=== PATIENT | female | born 1965 | race Caucasian/White ===

== ENCOUNTER → 2016-10-26 | Outpatient (CLI) | payer OTHER ==
[2016-10-26 17:08] LABS: Basophils # (A) 0.1 k/uL (0-0.2); Basophils % (A) 1 %; CH 29.1; CHCM 33.5; Eosinophils # (A) 0.2 k/uL (0-0.7); Eosinophils % (A) 2 %; HCT 38.9 % (34.0-46.0); HDW 2.78; HGB 13.2 gm/dL (11.4-16.0); Luc # (Auto) 0.19; Luc % (Auto) 2; Lymphocytes # (A) 2.6 k/uL (1.0-4.8); Lymphocytes % (A) 30 %; MCH 29.6 pg (25.0-35.0); MCV 87.3 fL (80.0-100.0); Mean Platelet Volume 6.6; Monocytes # (A) 0.4 k/uL (0-1.0); Monocytes % (A) 5 %; Neutrophils # (A) 5.2 k/uL (1.3-7.7); Neutrophils % (A) 60 %; RBC 4.45 m/uL (3.80-5.40); RDW 12.9 % (11.5-15.5); WBC 8.6 k/uL (3.8-10.6); WBC (Perox) 8.67
[2016-10-26 17:26] LABS: ALT 35 U/L (9-52); AST 25 U/L (14-36); Alkaline Phosphatase 88 U/L (38-126); Anion Gap 12 mmol/L; Blood Urea Nitrogen 9 mg/dL (7-17); Calcium 9.6 mg/dL (8.4-10.2); Carbon Dioxide 25 mmol/L (22-30); Chloride 100 mmol/L (98-107); Glucose 98 mg/dL (74-99); Non-African American GFR(MDRD) >60 (>60 ml/min/1.73 sqM); Sodium 137 mmol/L (137-145); Total Bilirubin 0.7 mg/dL (0.2-1.3); Total Protein 7.4 g/dL (6.3-8.2)
== END | disposition home or self-care (01) ==
LOC: LABWHC1 16:35
PROVIDERS: ATTEND Internal Medicine Endocrinology, Diabetes & Metabolism
DX: E04.2 Nontoxic multinodular goiter (principal)
CPT/HCPCS: 36415; 80053; 82306; 82728; 84439; 84443; 84481; 85025; 86376

== ENCOUNTER → 2017-06-27 | Outpatient (CLI) | payer OTHER ==
--- NOTE | 2017-06-27 13:16 | USB ---
Reason for exam: clinical finding. History: Family history of breast cancer in maternal aunt at age 50. Took hormonal contraceptives beginning at age 20. Physical Findings: Nurse did not find any significant physical abnormalities on exam. US Breast BILAT Right breast ultrasound includes all four quadrants, the retroareolar region and axilla. Finding demonstrates no cystic or solid lesion seen. Left breast ultrasound includes all four quadrants, the retroareolar region and axilla. Finding demonstrates no cystic or solid lesion seen. These results were verbally communicated with the patient and result sheet given to the patient on 06/27/17. ASSESSMENT: Negative, BI-RAD 1 RECOMMENDATION: Routine screening mammogram of both breasts in 1 year. Manage patient on a clinical basis.
== END | disposition home or self-care (01) ==
LOC: RADUSWWP 12:15
PROVIDERS: ATTEND Internal Medicine
DX: N64.89 Other specified disorders of breast (principal)

== ENCOUNTER 2019-01-18 19:53 | Emergency (ER) | payer OTHER ==
--- NOTE | 2019-01-18 21:14 | ED ---
Headache HPI - General Chief Complaint: Headache Stated Complaint: Migraine Time Seen by Provider: 01/18/19 21:13 Mode of arrival: ambulatory Limitations: no limitations - History of Present Illness Initial Comments: Layla is a 53-year-old female who presents the emergency department today for evaluation of a headache. Patient reports she has a history of mild headaches that usually resolve with Tylenol or Motrin. She states that she's been having URI-like symptoms for about a week she seen her primary care physician and was told that it's a viral. Patient reports that throughout the day today she was working in her garden, she states that she is make to drink plenty of Gatorade and stay hydrated. She reports that evening she began experiencing a posterior headache that she thought was due to straining her neck muscles. She states that she tried to take some Tylenol but became nauseated and vomited. Patient reports his headache continued to worsen and was unlike previous headaches prompted her bring her to the ER. Patient states that her headache is associated with photophobia and phonophobia. at bedside states that he has seen his had headaches in the past but she's never been debilitated like this. He reports that she usually can handle headache and just needs to take a quick nap however she has been very uncomfortable she vomited she does not appear well. - Related Data Home Medications Medication Instructions Recorded Confirmed Atorvastatin [Lipitor] 40 mg PO HS 07/23/15 01/18/19 Cholecalciferol [Vitamin D3 (25 1,000 unit PO DAILY 01/18/19 01/18/19 Mcg = 1000 Iu)] Ferrous Sulfate [Feosol] 325 mg PO DAILY 01/18/19 01/18/19 Levothyroxine Sodium [Synthroid] 88 mcg PO DAILY 01/18/19 01/18/19 Mometasone Furoate [Asmanex Hfa] 1 puff INHALATION RT-BID 01/18/19 01/18/19 Ranitidine HCl [Zantac] 150 mg PO DAILY 01/18/19 01/18/19 Allergies Allergy/AdvReac Type Severity Reaction Status Date / Time Sulfa (Sulfonamide Allergy Vomiting, Verified 01/18/19 21:28 Antibiotics) diarrhea, rash hydrocodone bitartrate AdvReac Severe Vomiting Verified 01/18/19 21:28 [From Vicodin] acetaminophen [From Vicodin] AdvReac Intermediate Vomiting Verified 01/18/19 21:28 codeine phosphate AdvReac Unknown Nausea Verified 01/18/19 21:28 [From Tylenol-Codeine #3] Review of Systems ROS Statement: Those systems with pertinent positive or pertinent negative responses have been documented in the HPI. ROS Other: All systems not noted in ROS Statement are negative. 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 History of Any Multi-Drug Resistant Organisms: None Reported Past Surgical History: Appendectomy, Back Surgery, Tonsillectomy, Uterine Ablation Additional Past Surgical History / Comment(s): 10/08/15 lumbar laminectomy with discectomy L4-5. Other surgical hx: surgery to stretch urethra, cystoscopy, EGD Past Anesthesia/Blood Transfusion Reactions: Previous Problems w/ Anesthesia, Motion Sickness Additional Past Anesthesia/Blood Transfusion Reaction / Comment(s): " bleeding during tonsillectomy" Past Psychological History: No Psychological Hx Reported Smoking Status: Former smoker Past Alcohol Use History: Rare Past Drug Use History: None Reported - Past Family History Sister(s) Family Medical History: Cancer Additional Family Medical History / Comment(s): RECENTLY FROM COLON CANCER Father Family Medical History: Myocardial Infarction (PA) Additional Family Medical History / Comment(s): Father of a PA at age 41 yrs. Mother Additional Family Medical History / Comment(s): Mother has chronic back pain. General Exam - General Exam Comments Initial Comments: GENERAL: Patient is well-developed and well-nourished. Appears uncomfortable HENT: Normocephalic, Atraumatic. No significant lymphadenopathy is noted. Oropharynx is clear. Moist mucous membranes. EYES: The sclera were anicteric and conjunctiva were pink and moist. Extraocular movements were intact and pupils were equal round and reactive to light. PULMONARY: Unlabored respirations. Good breath sounds bilaterally. No audible rales rhonchi or wheezing was noted. CARDIOVASCULAR: There is a regular rate and rhythm without any murmurs gallops or rubs. ABDOMEN: Soft and nontender with normal bowel sounds. SKIN: Skin is clear with no lesions or rashes and otherwise unremarkable. NEUROLOGIC: Patient is alert and oriented x3. Cranial nerves II through XII are grossly intact. Motor and sensory are also intact. Normal speech, volume and content. Symmetrical smile. MUSCULOSKELETAL: Normal extremities with adequate strength and full range of motion. No lower extremity swelling or edema PSYCHIATRIC: Normal psychiatric evaluation Limitations: no limitations Course Vital Signs 01/18/19 01/18/19 01/19/19 20:43 22:50 00:04 Temperature 98.4 F 98.9 F Pulse Rate 86 82 96 Respiratory 18 19 18 Rate Blood Pressure 132/84 146/86 148/77 O2 Sat by Pulse 100 94 L 98 Oximetry 01/19/19 01/19/19 01/19/19 00:30 01:00 01:36 Temperature Pulse Rate 84 87 82 Respiratory 18 18 16 Rate Blood Pressure 130/77 137/77 139/81 O2 Sat by Pulse 98 98 99 Oximetry Medical Decision Making - Medical Decision Making The patient was seen and evaluated, history is obtained from patient and at bedside patient has a history of vertigo and occasional headaches but no significant migraines. This is worse than previous headaches. Patient's concerned she may be dehydrated, Labs and imaging were ordered Patient concerned that her headache may be due to muscle spasm due to yard work all day, Reglan, Benadryl and Valium were ordered Labs and no significant abnormalities CT head resulted with a possible posterior subarachnoid bleed, a code stroke was activated and a CTA was ordered immediately Were discussed with the patient and she was advised that she will be taken back to CT scanner for CTA. Patient reports no improvement in her headache with meds and Valium however she states that if she lays flat with her eye mask on her headache is bearable. Patient remains hemodynamically stable blood pressure in the 130s to 140 systolic. Patient care was discussed with neuro interventional Dr Gregorio who will review images and make a recommendation on transfer to either [facility] or [facility] CTA resulted with no acute abnormalities Dr. Gregorio recommends transfer to [facility], patient care was discussed with the provider Gage for the neurosurgical team be expecting the patient to room 51 to the ICU Recommend keeping blood pressure below 140 systolic, Cardene drip ordered as needed Zofran and morphine were ordered for pain management. Patient's blood pressure was noted be 135/77. Patient remains neurovascularly neurologically intact at the time of transfer - Lab Data Result diagrams: 01/18/19 21:00 01/18/19 21:00 Lab Results 01/18/19 01/18/19 Range/Units 21:00 21:00 WBC 10.9 H (3.8-10.6) k/uL RBC 4.91 (3.80-5.40) m/uL Hgb 14.2 (11.4-16.0) gm/dL Hct 43.4 (34.0-46.0) % MCV 88.3 (80.0-100.0) fL MCH 29.0 (25.0-35.0) pg MCHC 32.8 (31.0-37.0) g/dL RDW 12.2 (11.5-15.5) % Plt Count 346 (150-450) k/uL Neutrophils % 81 % Lymphocytes % 14 % Monocytes % 3 % Eosinophils % 1 % Basophils % 0 % Neutrophils # 8.8 H (1.3-7.7) k/uL Lymphocytes # 1.5 (1.0-4.8) k/uL Monocytes # 0.3 (0-1.0) k/uL Eosinophils # 0.1 (0-0.7) k/uL Basophils # 0.0 (0-0.2) k/uL Sodium 140 (137-145) mmol/L Potassium 4.2 (3.5-5.1) mmol/L Chloride 101 (98-107) mmol/L Carbon Dioxide 23 (22-30) mmol/L Anion Gap 16 mmol/L BUN 8 (7-17) mg/dL Creatinine 0.59 (0.52-1.04) mg/dL Est GFR (CKD-EPI)AfAm >90 (>60 ml/min/1.73 sqM) Est GFR (CKD-EPI)NonAf >90 (>60 ml/min/1.73 sqM) Glucose 95 (74-99) mg/dL Calcium 10.6 H (8.4-10.2) mg/dL Total Bilirubin 0.6 (0.2-1.3) mg/dL AST 38 H (14-36) U/L ALT 46 (9-52) U/L Alkaline Phosphatase 83 (38-126) U/L Total Protein 8.8 H (6.3-8.2) g/dL Albumin 5.5 H (3.5-5.0) g/dL Critical Care Time Critical Care Time: Yes Total Critical Care Time: 60 Critical Care Time: Critical Care Time Critical care time was exclusive of separately billable procedures and treating other patients and teaching time. Critical care was necessary to treat or prevent imminent or life-threatening deterioration. Given the critical condition in which the patient arrived, the patient was immediately assessed by myself and the nurse, and cardiac monitoring initiated due to the potential for rapid decompensation of the patient's clinical condition. During the course of the patients stay, I spent a considerable amount of time at the bedside performing serial re-evaluations of the patient's hemodynamic and clinical status because of the recognized potential threat to life or limb in this condition. I then had a chance to review not only all of the available current laboratory and radiographic studies obtained today, but I also reviewed old records available to me at the time. Additionally, any ancillary information available including cook at [employer] records were reviewed. Sequential vital signs were obtained. Disposition Clinical Impression: Subarachnoid hemorrhage Disposition: OTHER INSTITUTION NOT DEFINED Condition: Serious Referrals: Shruthi Stone MD [Primary Care Provider] - 1-2 days - Out of Hospital Transfer - Req. Specs Out of Hospital Transfer - Requested Specifics: Neurological ICU ([facility])
[2019-01-18] MEDS ORDERED: diphenhydrAMINE 50 MG/ML 1 ML VIAL IVP STA (22:28)
[2019-01-18] MEDS ORDERED: METOCLOPRAMIDE 5 MG/ML 2 ML VIAL IVP STA (22:29)
[2019-01-18] MEDS ORDERED: DIAZEPAM 5 MG/ML 2 ML INJ IVP STA (22:29)
[2019-01-18 22:38] LABS: Basophils % (A) 0 %; Eosinophils # (A) 0.1 k/uL (0-0.7); Eosinophils % (A) 1 %; HCT 43.4 % (34.0-46.0); HGB 14.2 gm/dL (11.4-16.0); Lymphocytes # (A) 1.5 k/uL (1.0-4.8); Lymphocytes % (A) 14 %; MCHC 32.8 g/dL (31.0-37.0); MCV 88.3 fL (80.0-100.0); Mean Platelet Volume 7.1; Monocytes # (A) 0.3 k/uL (0-1.0); Monocytes % (A) 3 %; Neutrophils # (A) 8.8 k/uL (1.3-7.7); Neutrophils % (A) 81 %; Platelet Count 346 k/uL (150-450); RBC 4.91 m/uL (3.80-5.40); RDW 12.2 % (11.5-15.5); WBC 10.9 k/uL (3.8-10.6)
[2019-01-18 22:51] VITALS: TEMP 98.9
[2019-01-18 22:55] LABS: ALT 46 U/L (9-52); AST 38 U/L (14-36); African American GFR (CKD) >90 (>60 ml/min/1.73 sqM); Albumin 5.5 g/dL (3.5-5.0); Alkaline Phosphatase 83 U/L (38-126); Anion Gap 16 mmol/L; Blood Urea Nitrogen 8 mg/dL (7-17); Calcium 10.6 mg/dL (8.4-10.2); Carbon Dioxide 23 mmol/L (22-30); Chloride 101 mmol/L (98-107); Glucose 95 mg/dL (74-99); Potassium 4.2 mmol/L (3.5-5.1); Sodium 140 mmol/L (137-145); Total Bilirubin 0.6 mg/dL (0.2-1.3); Total Protein 8.8 g/dL (6.3-8.2)
--- NOTE | 2019-01-18 23:40 | CT ---
ADDENDUM - Added by Jenni Valle MD on 01/19/2019 12:19 AM (-10:00) Impression: Pattern of subarachnoid hemorrhage may be related to non- aneurysmal perimesencephalic SAH, given negative CTA of the head. EXAM: CT Head Without Intravenous Contrast CLINICAL HISTORY: Pain TECHNIQUE: Axial computed tomography images of the head/brain without intravenous contrast. CTDI is 0.085, 0.085, 49.1 mGy and DLP is 1074.4 mGy-cm. This CT exam was performed using one or more of the following dose reduction techniques: automated exposure control, adjustment of the mA and/or kV according to patient size, and/or use of iterative reconstruction technique. COMPARISON: No relevant prior studies available. FINDINGS: Brain: Acute subarachnoid hemorrhage is present in the prepontine and left quadrigeminal cisterns. A small amount of acute hemorrhage is also present along the left tentorium cerebelli. No significant mass effect. No large cortical hypodensity. Ventricles: Unremarkable. No ventriculomegaly. Bones/joints: Unremarkable. No acute fracture. Soft tissues: Unremarkable. Sinuses: Mucosal thickening in the paranasal sinuses. Fluid in the maxillary and right sphenoid sinuses. Partial opacification in the ethmoid and frontal sinuses. Mastoid air cells: Unremarkable. IMPRESSION: Acute subarachnoid hemorrhage in the prepontine and left quadrigeminal cisterns. No significant mass effect. Pansinusitis. <MYCVCSECTION> Critical Value Communications 01/18/19 23:41 Call Doctor Regarding Intracranial Hemorrhage, called Dr. Dick on 01/18 23:41 (-04:00)
--- NOTE | 2019-01-19 00:18 | CT ---
EXAM: CT Angiography Head With Intravenous Contrast CLINICAL HISTORY: Pain TECHNIQUE: Axial computed tomographic angiography images of the head with intravenous contrast using CT angiography protocol. CTDI is 0.085, 0.085, 2.4, 2.4, 2.4, 28.8 mGy and DLP is 623.3 mGy-cm. This CT exam was performed using one or more of the following dose reduction techniques: automated exposure control, adjustment of the mA and/or kV according to patient size, and/or use of iterative reconstruction technique. MIP reconstructed images were created and reviewed. COMPARISON: CT head 01/18/2019 FINDINGS: Right internal carotid artery: No acute findings. Right anterior cerebral artery: Unremarkable. No occlusion or significant stenosis. No aneurysm. Right middle cerebral artery: Unremarkable. No occlusion or significant stenosis. No aneurysm. Right posterior cerebral artery: Unremarkable. No occlusion or significant stenosis. No aneurysm. Right vertebral artery: Unremarkable as visualized. Left internal carotid artery: No acute findings. Left anterior cerebral artery: Unremarkable. No occlusion or significant stenosis. No aneurysm. Left middle cerebral artery: Unremarkable. No occlusion or significant stenosis. No aneurysm. Left posterior cerebral artery: Unremarkable. No occlusion or significant stenosis. No aneurysm. Left vertebral artery: Unremarkable as visualized. Basilar artery: Unremarkable. No occlusion or significant stenosis. No aneurysm. IMPRESSION: Unremarkable CT angiogram of the head.
[2019-01-19] MEDS ORDERED: niCARdipine 20 MG in SODIUM CHLORIDE 0.9% 192 ML IV SCH (01:30)
[2019-01-19 01:37] VITALS: BP 139/81; PULSE 82; RESP 16
[2019-01-19] MEDS ORDERED: MORPHINE SULFATE 4 MG/ML SYRINGE IVP STA (01:40)
[2019-01-19] MEDS ORDERED: ONDANSETRON 4 MG/2 ML VIAL IVP STA (01:40)
== END 2019-01-19 01:50 | disposition short-term general hospital (02) ==
LOC: EC 19:53
DX: I60.9 Nontraumatic subarachnoid hemorrhage, unspecified (principal); E78.5 Hyperlipidemia, unspecified; E03.9 Hypothyroidism, unspecified; K21.9 Gastro-esophageal reflux disease without esophagitis; Z87.891 Personal history of nicotine dependence; Z88.2 Allergy status to sulfonamides; Z88.5 Allergy status to narcotic agent; Z88.6 Allergy status to analgesic agent; Z79.890 Hormone replacement therapy; Z79.899 Other long term (current) drug therapy; Z86.2 Personal history of diseases of the blood and blood-forming organs and certain disorders involving the immune mechanism
CPT/HCPCS: 99291; 96374; 96375; 36415; 80053; 85025; 70496; 70450; J2270; J1200; J2765; J3360; J2405; Q9967

== ENCOUNTER → 2019-04-01 | Outpatient (CLI) | payer OTHER ==
--- NOTE | 2019-04-01 19:17 | MR ---
EXAMINATION TYPE: MR brain wo/w con DATE OF EXAM: 04/01/2019 COMPARISON: Correlation CT brain 01/18/2019 HISTORY: 53 year-old female subarachnoid hemorrhage, Bleed TECHNIQUE: Multiplanar, multisequence images of the brain and brainstem were acquired before and aft er administration of 7 mL IV Gadavist. Diffusion weighted imaging is performed. FINDINGS: No evidence for acute infarction, hemorrhage, mass, mass effect, midline shift, herniation, effacemen t of basal cisterns, or extra-axial fluid collection. The ventricles and sulci are age-appropriate with very mild cortical atrophy. Major intracranial flow voids are intact. T2/FLAIR weighted sequences show mild scattered burden of bright white matter change in the subcortic al and deep white matter regions of both cerebral hemispheres numbering approximately 10-15 foci on e ach side. T2* gradient sequence shows no intraparenchymal foci of susceptibility blooming artifact to suggest p rior intracranial microbleeds. Midline structures demonstrate normal morphology. The craniocervical junction is normal. Post contrast images demonstrate no evidence of pathologic enhancement. Dural venous sinuses are pat ent. Trace mucosal thickening maxillary sinuses and ethmoid air cells. Globes are intact. IMPRESSION: 1. Scattered T2 bright white matter change. This is nonspecific and likely relates mild burden of chr onic small vessel ischemic disease. 2. No acute intracranial abnormality or abnormal enhancing lesions identified.
== END | disposition home or self-care (01) ==
LOC: RADMRIMAIN 10:45
PROVIDERS: ATTEND Psychiatry & Neurology Neurology
DX: R90.89 Other abnormal findings on diagnostic imaging of central nervous system (principal)
CPT/HCPCS: 70553; A9585

== ENCOUNTER → 2019-04-01 | Outpatient (CLI) | payer OTHER ==
--- NOTE | 2019-04-01 10:00 | US ---
EXAMINATION TYPE: US thyroid st tissue head/neck DATE OF EXAM: 04/01/2019 COMPARISON: NONE CLINICAL HISTORY: 53-year-old female E04.1 Thyroid Nodule. TECHNIQUE: Multiple sonographic images of the thyroid gland are obtained. FINDINGS: GLAND SIZE: Right Lobe: 5.3 x 1.9 x 1.9 cm Overall Parenchyma: heterogenous Left Lobe: 4.5 x 2.0 x 1.9 cm Overall Parenchyma: heterogeneous Isthmus Thickness: .3 cm NODULES RIGHT: # of nodules measured on right: 0 LEFT: # of nodules measured on left: 0 ISTHMUS: # of nodules measured in the isthmus: 0 Bilateral neck scanned, no evidence of lymphadenopathy. IMPRESSION: 1. Borderline to mild thyromegaly. 2. Diffuse glandular heterogeneity suggests diffuse thyroiditis or goiter. 3. No discrete nodules.
--- NOTE | 2019-04-01 11:01 | US ---
EXAMINATION TYPE: US abdomen limited DATE OF EXAM: 04/01/2019 COMPARISON: 11/27/2015 CLINICAL HISTORY: 53-year-old female D18.09 Hemangioma. TECHNIQUE: Multiple sonographic images of the right upper quadrant are obtained. FINDINGS: EXAM MEASUREMENTS: Liver Length: 13.7 cm Gallbladder Wall: .14 cm CBD: .3 cm Right Kidney: 10.3 x 3.3 x 4.4 cm Pancreas: wnl Liver: Echogenic lesion within the right lobe measures 1.7 x 1.6 x 1.5 cm. Not visualized on prior u ltrasound of 11/27/2015. Gallbladder: wnl Evidence for sonographic Gibson's sign: No CBD: wnl Right Kidney: wnl IMPRESSION: A 1.7 cm echogenic lesion within the right liver lobe. Hemangioma is in the differential. However thi s is not seen on the patient's prior 11/27/2015 ultrasound. Surveillance is recommended, next follow-u p in 3 months or as clinically indicated.
== END | disposition home or self-care (01) ==
LOC: RADUSWWP 08:29
PROVIDERS: ATTEND Internal Medicine
DX: E01.0 Iodine-deficiency related diffuse (endemic) goiter (principal); K76.9 Liver disease, unspecified; D18.03 Hemangioma of intra-abdominal structures
CPT/HCPCS: 76536; 76705

== ENCOUNTER → 2019-04-16 | Outpatient (CLI) | payer OTHER ==
--- NOTE | 2019-04-18 14:54 | MM ---
Reason for exam: screening (asymptomatic). Last mammogram was performed 1 year and 10 months ago. History: Family history of breast cancer in maternal aunt at age 50. Took hormonal contraceptives beginning at age 20. Physical Findings: A clinical breast exam by your physician is recommended on an annual basis and results should be correlated with mammographic findings. MG 3D Screening Mammo W/Cad Bilateral CC and MLO view(s) were taken. Prior study comparison: June 13, 2017, bilateral MG 3d screening mammo w/cad. May 18, 2016, right breast MG 3d work up w/cad RT. The breast tissue is heterogeneously dense. This may lower the sensitivity of mammography. No suspicious abnormality. No significant changes when compared with prior studies. ASSESSMENT: Negative, BI-RAD 1 RECOMMENDATION: Routine screening mammogram of both breasts in 1 year.
== END | disposition home or self-care (01) ==
LOC: RADMAMWWP 10:14
PROVIDERS: ATTEND Internal Medicine
DX: Z12.31 Encounter for screening mammogram for malignant neoplasm of breast (principal)
CPT/HCPCS: 77063; 77067

== ENCOUNTER → 2019-05-27 | Outpatient (CLI) | payer OTHER ==
--- NOTE | 2019-05-28 08:41 | USB ---
Reason for exam: clinical finding. History: Family history of breast cancer in maternal aunt at age 50. Took hormonal contraceptives beginning at age 20. US Breast BILAT Right complete breast ultrasound includes all four quadrants, the retroareolar region and axilla. Finding demonstrates no cystic or solid lesion seen. Left complete breast ultrasound includes all four quadrants, the retroareolar region and axilla. Finding demonstrates duct ectasia at 3 o'clock, benign. No axillary CAD. These results were verbally communicated with the patient and result sheet given to the patient on 05/27/19. ASSESSMENT: Negative, BI-RAD 1 RECOMMENDATION: Return to routine screening mammogram schedule for both breasts.
== END | disposition home or self-care (01) ==
LOC: RADUSWWP 14:04
PROVIDERS: ATTEND Internal Medicine
DX: N64.59 Other signs and symptoms in breast (principal)

== ENCOUNTER 2019-06-21 09:41 | Day surgery (SDC) | payer OTHER ==
[2019-06-19 11:42] VITALS: BMI 25.9
[~2019-06-21 09:41] MED LIST: LACTATED RINGERS 1,000 ML IV SCH; LIDOCAINE 1% 20 ML VIAL (10MG/ML) FOR IV START INTRADERMA PRN
[2019-06-21 09:59] VITALS: TEMP 97.3
[2019-06-21] MEDS ORDERED: MIDAZOLAM 2 MG/2 ML VIAL ONE (10:22)
[2019-06-21] MEDS ORDERED: fentaNYL (PF) 50 MCG/ML 2 ML AMP ONE (10:22)
[2019-06-21] MEDS ORDERED: PROPOFOL 10 MG/ML 20 ML VIAL IV ONE (10:22)
--- NOTE | 2019-06-21 10:44 | P.PCN ---
Date of Procedure: 06/21/19 Procedure(s) Performed: Brief history: Patient is a pleasant 53-year-old white female scheduled for an elective upper endoscopy as well as colonoscopy as a part of evaluation of GERD/screening for colon cancer. Her sister was diagnosed with colon cancer at age 53. Procedure performed: Esophagogastroduodenoscopy Colonoscopy Preoperative diagnosis: GERD Screening for colon cancer Anesthesia: MAC Procedure: After informed consent was obtained from the patient was brought into the endoscopy unit and IV sedation was administered by anesthesia under continuous monitoring. Initially upper endoscopy was done. The Olympus GF 160 video endoscope was inserted inserted into the mouth and esophagus intubated without any difficulty and was gradually advanced into the stomach and duodenum and carefully examined. The bulb and second part of the duodenum appeared normal. The scope was then withdrawn into the stomach adequately insufflated with air and upon careful examination the antrum and body, cardia and fundus appeared normal. The scope was then withdrawn into the esophagus. The GE junction was located at 40 cm to the incisors. It appeared regular with no erythema erosions or ulcerations. Rest of the esophagus appeared normal. Patient tolerated the procedure well. At this time the patient continued to remain sedation. Initial digital rectal examination was normal. Olympus CF 160 video colonoscope was then inserted into the rectum and gradually advanced to the cecum without any difficulty. Careful examination was performed as the scope was gradually being withdrawn. The prep was excellent. The cecum, ascending colon, transverse colon, descending colon, sigmoid colon and rectum appeared normal. Retroflexion was performed in the rectum and no lesions were noted. Patient tolerated the procedure well. Impression: 1. Upper endoscopy revealed normal-appearing esophagus stomach and duodenum 2. Colonoscopy was essentially within normal limits with no evidence of colitis or colorectal neoplasia Recommendations: Findings of this examination were discussed with the patient as well as her family. She was advised to have a repeat screening colonoscopy in 5 years.
[2019-06-21 10:47] VITALS: RESP 18
[2019-06-21 11:01] VITALS: BP 118/80; PULSE 73
== END 2019-06-21 11:20 | disposition home or self-care (01) ==
LOC: ORWHC2ENDO 09:41
PROVIDERS: ATTEND Internal Medicine Gastroenterology
DX: Z12.11 Encounter for screening for malignant neoplasm of colon (principal); K21.9 Gastro-esophageal reflux disease without esophagitis; E78.5 Hyperlipidemia, unspecified; I08.1 Rheumatic disorders of both mitral and tricuspid valves; J44.9 Chronic obstructive pulmonary disease, unspecified; F17.200 Nicotine dependence, unspecified, uncomplicated; E07.9 Disorder of thyroid, unspecified; D68.2 Hereditary deficiency of other clotting factors; Z86.73 Personal history of transient ischemic attack (TIA), and cerebral infarction without residual deficits; Z79.890 Hormone replacement therapy; Z79.899 Other long term (current) drug therapy; Z79.51 Long term (current) use of inhaled steroids; Z90.49 Acquired absence of other specified parts of digestive tract; Z80.0 Family history of malignant neoplasm of digestive organs; Z88.5 Allergy status to narcotic agent; Z88.2 Allergy status to sulfonamides; Z90.89 Acquired absence of other organs; Z98.890 Other specified postprocedural states
CPT/HCPCS: 43235; G0105; J2250; J3010; J2704; 45378

== ENCOUNTER → 2022-02-22 | Outpatient (CLI) | payer OTHER ==
--- NOTE | 2022-02-23 09:11 | MM ---
Reason for Exam: Screening (asymptomatic). Last mammogram was performed 2 year(s) and 10 month(s) ago. Patient History: Menarche at age 13. First Full-Term at age 23. Postmenopausal. Hormonal Contraceptives, from age 20 until age 40. Maternal aunt had breast cancer, age 50. Risk Values: Bekah 5 year model risk: 1.1%. NCI Lifetime model risk: 7.2%. Prior Study Comparison: 05/18/2016 Right Diagnostic Mammogram, [facility]. 06/13/2017 Bilateral Screening Mammogram, [facility]. 04/16/2019 Bilateral Screening Mammogram, [facility]. Tissue Density: The breast tissue is heterogeneously dense. This may lower the sensitivity of mammography. Findings: Analyzed By CAD. There is no suspicious group of microcalcifications or new suspicious mass in either breast. No significant change from prior examinations. Overall Assessment: Negative, BI-RAD 1 Management: Screening Mammogram of both breasts in 1 year. A clinical breast exam by your physician is recommended on an annual basis and results should be correlated with mammographic findings. Electronically signed and approved by: Kirk Sutton D.O.
== END | disposition home or self-care (01) ==
LOC: RADMAMWWP 14:52
PROVIDERS: ATTEND Family Medicine
DX: Z12.31 Encounter for screening mammogram for malignant neoplasm of breast (principal)
CPT/HCPCS: 77063; 77067

== ENCOUNTER → 2023-11-07 | Outpatient (CLI) | payer OTHER ==
--- NOTE | 2023-11-07 12:09 | BD ---
EXAMINATION TYPE: Axial Bone Density DATE OF EXAM: 11/07/2023 CLINICAL HISTORY: 57 years old Female. ICD-10 CODE: Z78.0 Menopause Height: 64in Weight: 166lb FRAX RISK QUESTIONS: Family History (Parent hip fracture): yes Secondary Osteoporosis: 3. Menopause before 45: yes RISK FACTORS HISTORY OF: Surgery to Spine/Hip(right/left)/Wrist (right/left): yes, lumbar surgery When: 2015 MEDICATIONS: Thyroid Medications: Which medication: Synthroid How Lon-20 years EXAM MEASUREMENTS: Bone mineral densitometry was performed using the [employer] System. Bone mineral density about the R hip (g/cm2): 0.917 Bone mineral density about the L hip (g/cm2): 0.886 T Score values are as follows: -----R Neck: -1.3 -----L Neck: -1.1 -----R Total: -0.7 -----L Total: -1.0 Z Score values are as follows: -----R Neck: -0.4 -----L Neck: -0.2 -----R Total: -0.2 -----L Total: -0.4 First dexa at [facility] FRAX%s: The graph provided illustrates a 13.9% chance for a major osteoporotic fx and a 0.5% chance f or the hips probability for fx in 10 years time. IMPRESSION: Normal (Values between +1 and -1 indicate normal bone mass). Consider repeating this study in 5 year s or sooner if there is some new clinical indication. NOTE: T-SCORE=SD OF THE YOUNG ADULT MEAN.
--- NOTE | 2023-11-08 08:41 | MM ---
Reason for Exam: Screening (asymptomatic). Last mammogram was performed 1 year(s) and 8 month(s) ago. Patient History: Menarche at age 13. First Full-Term at age 23. Postmenopausal. Hormonal Contraceptives, from age 20 until age 40. Maternal aunt had breast cancer, age 50. Risk Values: Bekah 5 year model risk: 1.1%. NCI Lifetime model risk: 7.1%. Prior Study Comparison: 06/13/2017 Bilateral Screening Mammogram, MERGED WITH [facility]. 04/16/2019 Bilateral Screening Mammogram, MERGED WITH [facility]. 02/22/2022 Bilateral MG 3D screening mammo w/cad, MERGED WITH [facility]. Tissue Density: There are scattered areas of fibroglandular density. Findings: Analyzed By CAD. There is no suspicious group of microcalcifications or new suspicious mass in either breast. Overall Assessment: Benign, BI-RAD 2 Management: Screening Mammogram of both breasts in 1 year. . Patient should continue monthly self-breast exams. A clinical breast exam by your physician is recommended on an annual basis. This exam should not preclude additional follow-up of suspicious palpable abnormalities. Note on Bekah scores and lifetime risk: 1. A Bekah score greater than 3% is considered moderate risk. If this is the case, consider specialist referral to assess eligibility for a risk reducing agent. 2. If overall lifetime risk for the development of breast cancer is 20% or higher, the patient may qualify for future screening with alternating mammogram and breast MRI. Electronically signed and approved by: Berto Chakraborty M.D. [facility]
== END | disposition home or self-care (01) ==
LOC: RADBDWWP 10:48
PROVIDERS: ATTEND Specialist
DX: Z12.31 Encounter for screening mammogram for malignant neoplasm of breast (principal); Z78.0 Asymptomatic menopausal state; Z13.820 Encounter for screening for osteoporosis; M85.89 Other specified disorders of bone density and structure, multiple sites
CPT/HCPCS: 77063; 77067; 77080